=== PATIENT | male | born 2000 | race Caucasian/White ===

== ENCOUNTER → 2022-07-09 11:07 | Outpatient (BNVA) | payer OTHER, SELFPAY | PROVIDERS: Visit Provider Nurse Practitioner Family | DX: M54.50 Low back pain, unspecified (principal) | CPT/HCPCS: 72100 ==

== ENCOUNTER 2022-08-12 23:00 | Emergency (ER) | payer OTHER, SELFPAY ==
--- NOTE | 2022-08-12 23:03 | XRR_ITS ---
PROCEDURE INFORMATION: Exam: XR Right Knee Exam date and time: 08/12/2022 11:20 PM Age: 22 years old Clinical indication: Injury or trauma; Fall; Work related; Blunt trauma; Knee; Right TECHNIQUE: Imaging protocol: Radiologic exam of the right knee. Views: 3 views. COMPARISON: No relevant prior studies available. FINDINGS: Bones/joints: Normal. Soft tissues: Normal. XR/XR knee RT 3V* [id number] IMPRESSION: No acute findings.
[2022-08-12 23:25] VITALS: BMI 20.2
[2022-08-12 23:28] VITALS: BP 119/64; PULSE 61; RESP 16; TEMP 37.2; O2SAT 97
--- NOTE | 2022-08-12 23:39 | W.ED.FALL ---
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 Patient reports most of the pain is noted in the right knee on the medial aspect of the joint. Patient is managing weightbearing but reports tenderness and discomfort. Patient appears nontoxic. Patient appears mild pain. Associated symptoms-after fall: Denies chest pain Review of Systems General: Reports: 10 or more systems reviewed and unremarkable except in HPI and below Const: Denies: fever(s) Card: Denies: chest pain Resp: Denies: dyspnea GI: Denies: nausea or vomiting Musc: Reports: extremity pain (Right knee pain) Skin/Breast: Denies: rash Physical Exam Const: COMMON NORMALS: alert HENMT: COMMON NORMALS: normocephalic HEAD & SCALP: normocephalic Neck/C-Spine: COMMON NORMALS: full ROM Resp: COMMON NORMALS: normal respiratory effort and clear to auscultation bilaterally AUSCULTATION: clear to auscultation bilaterally Cardio: COMMON NORMALS: regular rate and regular rhythm RATE: regular rate RHYTHM: regular rhythm GI: COMMON NORMALS: non-tender Back/Pelvis: COMMON NORMALS: thoracic and lumbar spine normal to inspection Extremity: RIGHT LOWER EXTREMITY: Yes knee joint (Medial knee joint tenderness) Right knee: Yes inspection, Yes palpation, Yes ROM (Normal range of motion) and Yes other (Minimal swelling) Neuro: SENSORIUM/ORIENTATION: Yes alert Skin: COMMON NORMALS: turgor normal GENERAL SKIN EXAM: turgor normal Course Vital Signs: Vital signs: Vital Signs Temperature 98.9 F 08/12/22 23:28 Pulse Rate 61 08/12/22 23:28 Respiratory Rate 16 08/12/22 23:28 Blood Pressure 119/64 08/12/22 23:28 Pulse Oximetry 97 08/12/22 23:28 Oxygen Delivery Me thod Room Air 08/12/22 23:28 MDM - Fall Medical Decision Making 22-year-old male patient comes in today for injury to the right knee. On exam patient has some joint line tenderness along the medial aspect of the right knee. Normal range of motion is noted. No significant swelling is noted. Distal pulses are intact. Distal sensation is intact. Vital signs are normal. Differential diagnosis includes but not limited to contusion, fracture, meniscal injury. Most likely patient suffered a contusion to the knee. X-ray noted no fracture. Recommended follow-up with primary care or Workmen's Comp. specialist in 2 days for recheck and further evaluation as needed. Patient reported understanding. Discharge Plan Discharge Patient Disposition: Home Clinical Impression: Fall from slip, trip, or stumble Contusion of knee Qualifiers: Encounter type: initial encounter Laterality: right Qualified Code(s): S80.01XA - Contusion of right knee, initial encounter Condition: Stable Prescriptions: No Action No Known Home Medications Discharge Orders: Discharge ED (Routine); Ordered 08/12/22 Ordered By: Hamilton Maza Discharge Diet: Usual diet Discharge Activity: Increase activity as tolerated Patient Instructions: Knee Pain (ED) Activity Restrictions/Additional Instructions: Activity as tolerated. Use ice or heat for comfort. Use Tylenol and ibuprofen for further pain relief. Wear an elastic bandage for further comfort. Follow-up with primary care or Workmen's Comp. provider in 2 days for recheck and released back to work. 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
--- NOTE | 2022-08-18 14:30 | DCPLANNER ---
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
== END 2022-08-12 23:58 | disposition home or self-care (01) ==
PROVIDERS: Emergency Provider Nurse Practitioner Family
DX: S80.01XA Contusion of right knee, initial encounter (principal); W18.09XA Striking against other object with subsequent fall, initial encounter; Y92.129 Unspecified place in nursing home as the place of occurrence of the external cause; Y99.0 Civilian activity done for income or pay
CPT/HCPCS: 73562; 99283